=== PATIENT | male | born 1965 | race Caucasian/White ===

== ENCOUNTER 2024-03-20 11:20 | Emergency (ER) | payer BC, SELFPAY ==
[2024-03-20] VITALS (8 sets, daily range): BP systolic 103–137; BP diastolic 76–97; PULSE 48–61; RESP 20–26; TEMP 36.2–36.7; O2SAT 97–99; BMI 27.8
[2024-03-20] MEDS: ASPIRIN 81 MG TAB.CHEW 324 MG PO (11:29)
[2024-03-20] MEDS: TICAGRELOR 90 MG TABLET 180 MG PO (11:44)
[2024-03-20] MEDS: HEPARIN 5,000 UNIT/0.5 ML INJ 4000 UNIT IVP (11:45)
--- NOTE | 2024-03-20 11:45 | ED_ITS ---
HPI - Chest Pain General Date Seen: 03/20/24 Chief Complaint: Chest Pain Stated Complaint: diaphoretic,weakness,chest ache Time Seen by Provider: 03/20/24 11:34 Source: patient and family Mode of arrival: ambulatory Limitations: no limitations History of Present Illness HPI narrative: Patient is a 58-year-old male with history of hypertension high cholesterol presenting to the emergency department for chest pain. Chest pain started about 20-30 minutes prior to arrival. He had sudden onset left-sided chest pressure. Pain does not radiate. Has never had pain like this before. No history of heart disease. Is not taking anything for his cholesterol as it is being managed by diet. Does take blood pressure medication. No other concerns noted. I was called straight to the room as initial EKG showed concern for STEMI. Review of Systems Status of ROS Reports: 10 or more systems reviewed and unremarkable except as noted in History and below Exam Narrative Exam Narrative: Const: Well-nourished, Well-developed, in moderate distress Eyes: PERRL, no conjunctival injection, and symmetrical lids HENT: Atraumatic external nose and ears. Moist mucous membranes. Neck: Symmetric, trachea midline, No thyromegaly. CVS: RRR, No murmurs or gallops. Peripheral pulses 2+ and equal in all extremities RESP: Unlabored respiratory effort. Clear to auscultation bilaterally. GI: Nontender/Nondistended, No rebound or guarding. MSK:Extremities w/o deformity, Normal Active ROM Skin: Warm, Dry. No rashes or lesions. Neuro: Normal Muscle tone, No focal neurological deficits. Psych: Awake, Alert, & Oriented x3. Appropriate mood and affect. Const Vital Signs, click to edit/add: Vital Signs - 24 hr 03/20/24 11:35 Temperature 97.5 F L Pulse Rate [Pulse Oximeter] 55 L Respiratory Rate 26 H Blood Pressure [Right Upper Arm] 117/88 Pulse Oximetry 97 Oxygen Delivery Method Room Air Course Vital Signs Vital signs: Initial Vital Signs Temperature 97.5 F L 03/20/24 11:35 Temperature Source Temporal Artery Scan 03/20/24 11:35 Pulse Rate 55 L 03/20/24 11:35 Respiratory Rate 26 H 03/20/24 11:35 Blood Pressure 117/88 03/20/24 11:35 Blood Pressure Mean 97 03/20/24 11:35 Blood Pressure Position Semi-Fowlers 03/20/24 11:35 Pulse Oximetry 97 03/20/24 11:35 Oxygen Delivery Method Room Air 03/20/24 11:35 Vital Signs Temperature 97.5 F L 03/20/24 11:35 Pulse Rate 55 L 03/20/24 11:35 Respiratory Rate 26 H 03/20/24 11:35 Blood Pressure 117/88 03/20/24 11:35 Pulse Oximetry 97 03/20/24 11:35 Oxygen Delivery Method Room Air 03/20/24 11:35 Temperature 97.5 F L 03/20/24 11:35 Pulse Rate 55 L 03/20/24 11:35 Respiratory Rate 26 H 03/20/24 11:35 Blood Pressure 117/88 03/20/24 11:35 Pulse Oximetry 97 03/20/24 11:35 Oxygen Delivery Method Room Air 03/20/24 11:35 MDM - Chest Pain MDM Narrative Medical decision making narrative: Patient is a 58-year-old male presenting to the emergency department for chest pain. I was called immediately to the room an EKG was done for concerns of a STEMI. On my review there does appear to be some ST elevations and the inferior leads. There is also reciprocal depressions seen. Elevations are more notable on the tele strip. He has stable vital signs at this time. Will start heparin and give aspirin. Called Cardiology immediately to activate labor relations supervisor. I spoke to Dr. Newton who agrees with this plan. Zohra ordered. Will fly him out via helicopter so he can arrive at labor relations supervisor as soon as possible. Him and his were agreeable to this plan. Will continue to monitor. ECG Data Attestation: I personally reviewed and interpreted this ECG as follows: Prior ECG tracings: not available for review Interpretation: Heart rate 58 beats per minute with a normal sinus rhythm. Normal intervals, ST elevations noted in inferior leads. Critical Care Time Critical Care Time Critical Care Time: Yes Attestation: The patient required my highest level preparedness to intervene emergently and I personally spent this critical care time directly and personally managing the patient. This critical care time included: Obtaining a history; Examining the patient; Pulse oximetry; Ordering and reviewing of studies; Arranging urgent treatment with development of a management plan; Evaluation of patients response to treatment; Frequent reassessment discussions with other providers. This critical care time was performed to assess and manage the high probability of imminent life-threatening deterioration that could result in multiorgan failure. It was exclusive of separate billable procedures and treating other patients and teaching time. Total Critical Care Time in Minutes: 34 Discharge Plan Discharge Clinical Impression: ST elevation myocardial infarction (STEMI) Patient Disposition: Mad[facility] Harden Condition: Critical Stand Alone [facility]: [facility] Info Instructions
[2024-03-20] MEDS: HEPARIN 25,000 UNIT/500 ML BAG 20 UNIT IV (11:47)
[2024-03-20 11:49] LABS: Hematocrit 45.7 % (37.0-53.0); Hemoglobin* 14.5 gm/dL (13.5-17.5); Mean Corpuscular HGB Conc 32 gm/dL (32-36); Mean Corpuscular Hemoglobin 28 pg (26-34); Mean Corpuscular Volume 88 fL (80-100); Platelet Count* 334 K/uL (140-440); Red Blood Count 5.22 m/uL (4.30-5.90)
[2024-03-20 11:52] LABS: Slide Review Reflex No
[2024-03-20] MEDS: MORPHINE 2 MG/ML inj IVP (11:56)
[2024-03-20 11:59] LABS: Troponin, Point-of-Care* 0.07 ng/ml (0.01-0.04)
[2024-03-20 12:08] LABS: Chloride* 103 mmol/L (96-114); Potassium* 3.6 mmol/L (3.6-5.1); Sodium* 136 mmol/L (135-149)
[2024-03-20 12:10] LABS: INR 0.95 (0.91-1.10); Partial Thromboplastin Time* 26 Seconds (23-33); Prothrombin Time 13.3 Seconds
[2024-03-20 12:11] LABS: Anion Gap 7 mEq/L (7-15); Blood Urea Nitrogen* 15 mg/dL (7-30); Carbon Dioxide* 26 mmol/L (20-32); Est. Creatinine Clearance* 92.11; Estimated Glomerular Filt Rate 88 ml/min; Glucose* 137 mg/dL (60-115)
[2024-03-20] MEDS: fentaNYL 100 MCG/2 ML inj 50 MCG IVP (12:11)
[2024-03-20 12:12] LABS: Calcium* 9.1 mg/dL (8.4-10.6)
== END 2024-03-20 12:35 | disposition short-term general hospital (02) ==
PROVIDERS: Emergency Provider Student in an Organized Health Care Education/Training Program
DX: I21.3 ST elevation (STEMI) myocardial infarction of unspecified site (principal)
CPT/HCPCS: 36415; 80048; 84484; 85027; 85610; 85730; 93005; 94761; 99285; 99291; A9270; J1644; J2270; J3010